=== PATIENT | female | born 1950 | race American Indian/Alaskan Native ===

== ENCOUNTER 2021-03-05 07:43 | Day surgery (SDC) | payer MEDICARE ==
--- NOTE | 2021-03-05 08:54 | Short Stay Summary ---
Short Stay Documentation Date of service: 03/05/21 - History Principal diagnosis: Chest Pain H&P: obtained from office Past Medical History: arrhythmia, cancer (breast), diabetes, hypertension, hyperlipidemia Past Surgical History: no valve replacement, no CABG, no PTCA Social history: no smoking, no alcohol abuse - Allergies and Medications Current Medications: Allergies No Known Allergies Allergy (Unverified 03/05/21 08:26) Active Medications Aspirin (Aspirin Ec 325 Mg Tab) 325 mg PO ONCE MARCIA Stop: 03/05/21 17:00 Sodium Chloride (Nacl 0.9% 500 Ml) 500 mls @ 50 mls/hr IV DIRECT MARCIA Stop: 03/05/21 18:59 - Physical exam General appearance: no acute distress Integumentary: no rash, other (R groin site - clean/dry/intact, no evidence of bleeding or hematoma) HEENT: Atraumatic, EOMI Lungs: Clear to auscultation Heart: Regular rate, Normal S1, Normal S2, No murmurs Gastrointestinal: normal Extremities: no ischemia, pulses intact, No edema Neurological: Normal speech, Normal tone, Sensation intact - Brief post op/procedure progress note Date of procedure: 03/05/21 Pre-op diagnosis: Chest Pain Post-op diagnosis: same Surgeon: LA CAT Estimated blood loss: minimal Pathology: none Condition: stable - Hospital course Hospital course: Pt presented today for elective LHC, which revealed no significant coronary artery disease. See cath report for detailed findings. Pt tolerated procedure well. Currently stable with no complaints. Recommend primary and secondary risk factor modification. Follow-up with Dr. Alegria in 1-2 weeks ([phone]). - Disposition Condition at discharge: Good Disposition: DC-01 TO HOME OR SELFCARE - Discharge Diagnoses (1) HTN (hypertension) Status: Chronic Qualifiers: Hypertension type: essential hypertension Qualified Code(s): I10 - Essential (primary) hypertension (2) HLD (hyperlipidemia) Status: Chronic Qualifiers: Hyperlipidemia type: mixed hyperlipidemia Qualified Code(s): E78.2 - Mixed hyperlipidemia Short Stay Discharge Plan Activity: advance as tolerated Diet: low fat, low cholesterol, diabetic Wound: open to air, keep clean and dry, per your surgeon's advice Follow up with: ADELINE JACK MD [Primary Care Provider] - 7 Days JERONIMO ALEGRIA MD [Staff Physician] - 14 Days Forms: [facility] PCI D/C Instructions
[2021-03-05 08:55] LABS: Basophils # (Auto) 0.1 K/mm3 (0.0-0.1); Basophils % (Auto) 1.1 % (0.0-1.8); Eosinophils # (Auto) 0.1 K/mm3 (0.0-0.4); Eosinophils % (Auto) 1.3 % (0.0-4.3); Hematocrit 39.2 % (30.3-42.9); Hemoglobin 13.9 gm/dl (10.1-14.3); Lymphocytes # (Auto) 1.3 K/mm3 (1.2-5.4); Mean Corpuscular HGB Conc 35 % (30-34); Mean Corpuscular Volume 93 fl (79-97); Monocytes # (Auto) 0.3 K/mm3 (0.0-0.8); Monocytes % (Auto) 7.4 % (0.0-7.3); Platelet Count 234 K/mm3 (140-440); Red Blood Count 4.23 M/mm3 (3.65-5.03); Red Cell Distribution Width 14.1 % (13.2-15.2)
[2021-03-05] MEDS ORDERED: SODIUM CHLORIDE 0.9% 500 ML 500 ML IV SCH (09:00)
[2021-03-05] MEDS ORDERED: ASPIRIN EC 325 MG TAB PO SCH (09:00)
[2021-03-05 09:07] LABS: INR 0.94 (0.87-1.13)
[2021-03-05 09:16] LABS: BUN/Creatinine Ratio 15; Blood Urea Nitrogen 12 mg/dL (7-17); Calcium 9.8 mg/dL (8.4-10.2); Hemolysis Index 6
[2021-03-05] MEDS ORDERED: fentaNYL 100 MCG/2 ML INJ ONE (09:56)
[2021-03-05] MEDS ORDERED: MIDAZOLAM 2 MG/2 ML INJ ONE (09:56)
[2021-03-05] MEDS ORDERED: LIDOCAINE (2%) 20 MG/1 ML VIAL 20 ML MDV INFILTRATI ONE (09:57)
[2021-03-05] MEDS ORDERED: HEPARIN/NS 5000 UNIT/500ML 1,000 ML IR ONE (09:57)
[2021-03-05 10:49] LABS: Partial Thromboplastin Time 27.9 Sec. (24.2-36.6)
[2021-03-05] MEDS ORDERED: traMADol 50 MG TAB PO PRN (13:30)
[2021-03-05] MEDS ORDERED: HYDROcodone/ACETAMINOPHEN 5-325 MG TAB PO PRN (13:30)
--- NOTE | 2021-03-05 13:36 | Cardiac Catherization Report ---
DATE OF PROCEDURE: 03/05/2021 REFERRING PHYSICIAN: Dr. Ashford INDICATIONS FOR PROCEDURE: The patient is a very pleasant 70-year-old -[place] female with multiple risk factors and abnormal nuclear stress test, referred for left heart catheterization. Risks, benefits, potential alternatives explained at length prior to obtaining informed consent PROCEDURE IN DETAIL: The patient was brought to the [employer] in a postabsorptive state. The patient has had right mastectomy and thus we used a groin approach. A 6-Albanian sheath placed in the right common femoral artery via modified Seldinger technique. All exchanges performed to exchange a J-tip guidewire. JL3.5 catheter was used to engage the left main. No dampening or ventricularization. Cineangiography performed in all projections. JR4 catheter used to cross the aortic valve under fluoroscopic guidance. Left ventriculography performed in the 30 DRISCOLL and 30 THAI projections via hand injections. Catheter flushed. Manual pullback performed with continuous pressure monitoring. Catheter was used to engage the right coronary. No dampening or ventricularization. Cineangiography performed in all projections. Next, catheter removed from the body over wire. Sheath removed. Manual pressure was used to achieve hemostasis. No complications. I directly supervised the administration of moderate sedation with fentanyl and Versed from 10:30 a.m. to 11:02 a.m. No immediate complications. DATA: Aortic pressure is 119/60, LV pressure is 119, LVEDP of 16 mmHg. Left ventriculography reveals normal systolic performance with estimated ejection fraction of 55-60%. No evidence of aortic stenosis. The patient remained in normal sinus rhythm throughout the procedure. CORONARY ANATOMY: This is a right dominant system. Right coronary is a moderate sized vessel, courses AV groove, distally bifurcates in the posterior descending and posterolateral branches. No discrete stenoses. Left main without significant disease, bifurcates into left anterior descending and left circumflex. LAD is a moderate sized vessel, courses anterior intraventricular groove, wraps around the apex. There is a mid LAD segment, which is intramyocardial. No evidence of stenosis noted. No evidence of diastolic collapse. No significant obstructive disease in LAD or diagonal system. CONCLUSIONS: 1. No angiographic evidence of significant epicardial coronary disease in this right dominant system. Mid LAD intramyocardial segment without evidence of diastolic collapse. HAYDER 3 flow noted. 2. Normal left ventricular systolic performance estimated fraction of 55-60%. 3. No evidence of aortic stenosis. 4. Normal LVEDP. The patient is clinically stable. No chest pain. Standard groin care. Aggressive primary and secondary prevention. Primary prevention recommended. Follow up with Dr. Ashford in the office. Results of the procedure explained in length to the patient and . All questions and concerns were addressed. TID: [id number] RECEIPT: [id number] DAKOTA/BREANN
--- NOTE | 2021-03-05 14:29 | Electrocardiograph Report ---
[facility] Test Date: 2021-03-05 Test Time: 09:24:36 Pat Name: ARIK HERNANDEZ Department: Room: Gender: F Dependency Program Director: VENKATA : 1950 Requested By: LA CAT Order Number: [id number] Reading MD: Pramod Beach Measurements Intervals [place] Rate: 58 P: 69 UT: 170 QRS: 4 QRSD: 87 T: 4 QT: 399 QTc: 392 Interpretive Statements Sinus bradycardia No previous ECG available for comparison Electronically Signed On 03-05-2021 14:28:26 EDT by Pramod Beach
[2021-03-05 16:00] VITALS: BP 111/73
== END 2021-03-05 07:44 | disposition home or self-care (01) ==
LOC: CATHLABREC 07:43
PROVIDERS: ATTEND Internal Medicine
DX: R94.39 Abnormal result of other cardiovascular function study (principal); R07.89 Other chest pain; I10 Essential (primary) hypertension; E78.5 Hyperlipidemia, unspecified; K21.9 Gastro-esophageal reflux disease without esophagitis; I49.3 Ventricular premature depolarization; I47.1 Supraventricular tachycardia; Z85.3 Personal history of malignant neoplasm of breast; Z79.899 Other long term (current) drug therapy; Z90.11 Acquired absence of right breast and nipple; Z72.89 Other problems related to lifestyle; Z98.890 Other specified postprocedural states; Z83.3 Family history of diabetes mellitus; Z82.49 Family history of ischemic heart disease and other diseases of the circulatory system
CPT/HCPCS: 36415; 80048; 85025; 85610; 85730; 93005; 93458; 99156; 99157; J1644; J2250; J3010; J7040; Q9967